=== PATIENT | female | born 2000 | race Caucasian/White ===

== ENCOUNTER → 2019-01-18 | Outpatient (CLI) | payer BC ==
--- NOTE | 2019-01-18 16:24 | Diagnostic Imaging Report ---
EXAMINATION: PA and lateral views of the chest. COMPARISON: None CLINICAL HISTORY: +PPD DISCUSSION: Lungs are well-inflated and without focal consolidation, pleural effusion, or pneumothorax. No cavitation. No acute osseous abnormality. IMPRESSION: No acute cardiopulmonary abnormality. No evidence of active granulomatous disease. Signed by: Dr. Skinny Brown M.D. on 01/18/2019 4:20 PM
== END ==
LOC: RAD 15:48
PROVIDERS: ATTEND Family Medicine
DX: R76.11 Nonspecific reaction to tuberculin skin test without active tuberculosis (principal)
CPT/HCPCS: 71046

== ENCOUNTER 2019-05-14 07:58 | Emergency (ER) | payer BC ==
[~2019-05-14] VITALS: Ht 157.5 cm; Wt 62.6 kg
--- OUTSIDE RECORDS SUMMARY | 2019-05-14 08:02 | XMS REPORT ---
Author Author [facility] Address Unknown Phone Unavailable Care Team Providers Care Retail Salesworker Name Role Phone SAMSON CORONADO Unavailable Unavailable Ernestine ARELLANO Unavailable Unavailable Problems This patient has no known problems. Allergies, Adverse Reactions, Alerts This patient has no known allergies or adverse reactions. Medications This patient has no known medications. Results Test Description Test Time Test Comments Text Results Atomic Results Result Comments CHEST 2 VIEWS 2019-01-18 16:19:00 [place] [address] Patient Name: STACIE HUNTER MR #: [id number] : 2000 Age/Sex: 18/F Req #: [id number] Adm Physician: Ordered by: CLIFF CHIN, SAMSON Castle MD Report #: [id number] Location: [facility] Room/Bed: Procedure: [id number] DX/CHEST 2 VIEWS Exam Date: 01/18/19 Exam Time: 1540 REPORT STATUS: Signed EXAMINATION: PA and lateral views of the chest. COMPARISON: None CLINICAL HISTORY: +PPD DISCUSSION: Lungs are well-inflated and without focal consolidation, pleural effusion, or pneumothorax. No cavitation. No acute osseous abnormality. IMPRESSION: No acute cardiopulmonary abnormality. No evidence of active granulomatous disease. Signed by: Dr. Mirella Love M.D. on 01/18/2019 4:20 PM Dictated By: MIRELLA LOVE MD 162 Transcribed By: VALENTINA on 01/18/19 1620 COPY TO: CORONADOSAMSON CT BRAIN WO 2018-04-25 22:46:00 [facility] [address] [address] Patient Name: STACIE HUNTER MR #: [id number] : 2000 Age/Sex: 17/F Req #: [id number] Adm Physician: Ordered by: AROLDO ARELLANO MD Report #: [id number] Location: ER Room/Bed: Procedure: [id number] CT/CT BRAIN WO Exam Date: 04/25/18 Exam Time: 2225 REPORT STATUS: Signed EXAMINATION: Head CT without contrast. HISTORY:Headache. COMPARISON:None. TECHNIQUE: Multidetector axial images were obtained from the foramen magnum to the vertex without contrast. The images were reconstructed using brain and bone algorithms. Thin section brain images were reformatted into coronal and sagittal planes. Dose modulation, iterative reconstruction, and/or weight based adjustment of the mA/kV was utilized to reduce the radiation dose to as low as reasonably achievable. Intravenous contrast: None IMAGE QUALITY: Acceptable. FINDINGS: Skull/scalp: No lytic or blastic. lesions. No surgical changes. Parenchyma: No abnormal density. No acute hemorrhage, mass or acute major vascular territorial infarct. Arteries: No density suggestive of thrombosis. Dural sinuses: No abnormal density suggestive of thrombosis. Ventricles: No hydrocephalus or displacement. Extra-axial spaces: No abnormal density. Brain volume: Normal for age. Craniocervical junction: Low-lying cerebellar tonsils on the right side, approximately 5.7 mm below the level of foramen magnum. Sella: No mass. Paranasal/mastoid sinuses: Imaged portions unremarkable. 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 Otherwise, no abnormality. Signed by: Dr. Sammie Armas M.D. on 04/25/2018 10:53 PM Dictated By: SAMMIE ARMAS MD 52 Transcribed By: VALENTINA on 04/25/182252 COPY TO: AROLDO ARELLANO MD
[2019-05-14] MEDS ORDERED: DIPHENHYDRAMINE HCL INJ 50 MG/ML VIAL IV NR (08:15)
[2019-05-14] MEDS ORDERED: METOCLOPRAMIDE HCL 10 MG/2ML VIAL IV NR (08:15)
[2019-05-14] MEDS ORDERED: ACETAMIN/BUTALBITAL/CAFFEINE TAB PO NR (08:15)
--- NOTE | 2019-05-14 08:16 | NUR ---
ALL ORDERED LABS AND MEDICATIONS D/C PER DR GARCIA.
[2019-05-14] MEDS ORDERED: REGLAN10 MG PO (08:17)
[2019-05-14] MEDS ORDERED: FIORINAL 50-321 EACH PO (08:17)
== END 2019-05-14 08:25 | disposition home or self-care (01) ==
LOC: ER 07:58
DX: G43.011 Migraine without aura, intractable, with status migrainosus (principal)
CPT/HCPCS: 99282

== ENCOUNTER 2020-09-23 21:33 | Emergency (ER) | payer BC ==
[~2020-09-23] VITALS: Ht 157.5 cm; Wt 62.6 kg
[~2020-09-23 21:33] MED LIST: FIORINAL 50-321 EACH PO; REGLAN10 MG PO
[2020-09-23] MEDS ORDERED: ACETAMINOPHEN 325 MG TAB PO STA (21:46)
== END 2020-09-23 22:00 | disposition home or self-care (01) ==
LOC: ER 21:40
DX: U07.1 COVID-19 (principal); R50.9 Fever, unspecified
CPT/HCPCS: 99283